=== PATIENT | female | born 1995 | race Caucasian/White ===

== ENCOUNTER 2017-03-23 16:12 | Emergency (ER) | payer SELFPAY ==
[~2017-03-23] VITALS: Ht 147.3 cm; Wt 75.0 kg
[~2017-03-23 16:12] MED LIST: ALBU6.7H INH; METH750T2 PO; METO10TA PO; MOBI15TA PO
[2017-03-23 16:13] VITALS: BP 125/68; PULSE 82; RESP 14; TEMP 98.5; O2SAT 99
--- NOTE | 2017-03-23 17:10 | PD ---
HPI . intermittent mouth blisters, intermittent dizziness and headache for several months Chief Complaint: ENT Complaint Time Seen by Provider: 16:51 Travel History International Travel<30 days: No Contact w/Intl Traveler<30days: No Traveled to known affect area: No History of Present Illness HPI 21-year-old female here with complaints of intermittent blisters in her mouth, intermittent dizziness and headaches for several months. Patient tells me that she doesn't have any of these symptoms today, however she's had them intermittently would like to be checked out. She then reported a slight headache. She does not have a primary care provider and is not certain if she has insurance. History Social History Alcohol Use: No Tobacco Use: No Allergies-Medications (Allergen,Severity, Reaction): Coded Allergies: No Known Allergies (Verified , 03/23/17) Reported Meds & Prescriptions Reported Meds & Active Scripts Active Review of Systems General / Constitutional: No: Fever Eyes: No: Visual changes HENT: Positive: Headaches Cardiovascular: No: Chest Pain or Discomfort Respiratory: No: Shortness of Breath Gastrointestinal: No: Abdominal Pain Genitourinary: No: Dysuria Musculoskeletal: No: Pain Skin: No Rash Neurologic: No: Weakness Psychiatric: No: Depression Endocrine: No: Polydipsia Hematologic/Lymphatic: No: Easy Bruising Physical Exam Narrative GENERAL: AAO x 3, no acute distress, Well-nourished, well-developed patient. SKIN: Warm and dry. No visible rashes or bruising. HEAD: Normocephalic and atraumatic. EYES: No scleral icterus. No injection or drainage. EOM intact, PERRLA ENT: No nasal drainage noted. Mucous membranes pink. Airway patent. No oropharynx abnormality. No blisters visualized. TMs with slight clear effusion bilaterally. No frontal or maxillary sinus tenderness. NECK: Supple, trachea midline. No JVD. No lymphadenopathy CARDIOVASCULAR: Regular rate and rhythm without murmurs, gallops, or rubs. RESPIRATORY: Breath sounds equal bilaterally. No accessory muscle use. No rhonchi or rales. GASTROINTESTINAL: Abdomen soft, non-tender, nondistended. EXTREMITIES: No cyanosis or edema. BACK: No obvious deformity. NEURO: CN II-12 intact, concrete puddler strength normal b/l, UE and LE 5/5, no focal deficits. No pronator drift. 3 motor function normal PSYCH: AAO x 3, normal affect. Data Data Last Documented VS Vital Signs Date Time Temp Pulse Resp B/P (MAP) Pulse Ox O2 Delivery O2 Flow Rate FiO2 03/23/17 16:13 98.5 82 14 125/68 (87) 99 MDM Medical Screen Exam Complete: Yes Emergency Medical Condition: No Differential Diagnosis Aphthous ulcers, herpetic lesions of the mouth, sinusitis, allergic rhinitis Narrative Course A medical screening exam was performed: At the time of evaluation the presenting medical condition was determined not to be of an emergent nature. The patient was given the option of receiving additional care, but declined. Patient was given options for additional community resources from which to obtain care. The Patient Has Been advised to seek medical attention for their presenting complaint. The patient has been advised to return to the ER at any time if an emergent condition develops. Recommended [facility] Primary Impression: Encounter for medical screening examination Scripts No Active Prescriptions or Reported Meds Condition: Stable Orin Conklin Mar 23, 2017 17:10
== END 2017-03-23 17:15 | disposition left against medical advice (07) ==
LOC: NEPD 16:12
DX: Z00.00 Encounter for general adult medical examination without abnormal findings (principal)
CPT/HCPCS: 99281